=== PATIENT | male | born 1990 | race Caucasian/White ===

== ENCOUNTER 2017-10-18 01:56 | Emergency (ER) | payer OTHER ==
[~2017-10-18] VITALS: Ht 167.6 cm; Wt 66.7 kg
--- NOTE | 2017-10-18 02:01 | ER Report ---
History and Physical Time Seen By MD: 01:58 HPI/ROS CHIEF COMPLAINT: chest pain HISTORY OF PRESENT ILLNESS: This is a 26 year old male. He had sudden onset of chest pain tonight. Right side in lower right area and into ribs. Sharp pain. Worse with deep breaths. Never had pain like this in the past. Has not been sick otherwise, denies runny nose, sore throat or cough. No history of lung or heart problems. No history of blood clots. Denies drug use or alcohol. He does not smoke. No fevers or chills. Has some nausea and one episode of vomiting tonight. Normal bowel and bladder function. No rashes. REVIEW OF SYSTEMS: As above. Allergies: Coded Allergies: No Known Drug Allergies (Unverified , 10/18/17) Home Meds Active Scripts Ondansetron (ZOFRAN ODT) 4 Mg Tab.rapdis, 4 MG PO Q6H Y for NAUSEA/VOMITING, # 20 TAB.JOYA 0 Refills Prov:PRESLEY DUGGAN MD 10/18/17 Hydrocodone Bit/Acetaminophen (HYDROCODON-ACETAMINOPHEN 5-325) 1 Each Tablet, 1 EACH PO Q4H Y for PAIN, #12 TAB 0 Refills Prov:PRESLEY DUGGAN MD 10/18/17 Reviewed Nurses Notes: Yes Hx Smoking: No Exposure to Second Hand Smoke?: No Hx Substance Use Disorder: Yes Hx Alcohol Use: No Constitutional Vital Sign - Last 24 Hours 10/18/17 10/18/17 10/18/17 10/18/17 01:56 01:57 02:00 02:01 Temp 98.9 Pulse 81 82 83 Resp 13 20 12 B/P (MAP) 123/91 114/79 (91) Pulse Ox 99 99 99 O2 Delivery Room Air 10/18/17 10/18/17 10/18/17 10/18/17 02:05 02:06 02:11 02:16 Pulse 77 79 72 Resp 23 16 19 Pulse Ox 98 99 100 O2 Flow Rate 2.0 10/18/17 10/18/17 10/18/17 10/18/17 02:30 02:31 02:46 03:00 Pulse 84 89 Resp 13 B/P (MAP) 119/87 (98) 107/68 (81) Pulse Ox 100 100 10/18/17 10/18/17 10/18/1710/18/18 03:01 03:46 03:51 04:00 Pulse 79 83 86 82 Resp 15 15 16 B/P (MAP) 132/75 (94) Pulse Ox 99 99 95 O2 Delivery Room Air Physical Exam General Appearance: The patient is alert. He is having acute distress because of the pain. Non-toxic in appearance. Eyes: Pupils are equal, round. No pallor, injection or icterus. ENT: Mucous membranes are moist. Normal oral mucosa. Posterior oropharynx is normal. Neck: Supple and non tender. No lymphadenopathy. Respiratory: Difficult to breath because of pain, taking shallow breaths. Lungs are clear to auscultation. There are no retractions or accessory muscle use. Cardiovascular: Regular rate and rhythm. No murmurs, gallops or rubs. Normal capillary refill. No edema. Gastrointestinal: Abdomen is soft and non tender. Nondistended. Normal active bowel sounds. No costovertebral angle tenderness with percussion. Neurological: Alert and oriented x3. Skin: Warm and dry. No rashes. Musculoskeletal: Extremities are nontender. Full range of motion. No tenderness in palpation of the cervical, thoracic and lumbar spine. DIFFERENTIAL DIAGNOSIS: After history and physical exam, differential diagnosis was considered for chest pain including but not limited to myocardial ischemia, pericarditis pulmonary embolus, chest wall pain, pleural inflammation and pulmonary infectious causes. Medical Decision Making Data Points Result Diagram: 10/18/17 0142 10/18/17 0142 Laboratory Hematology Test 10/18/17 01:42 Red Blood Count 6.24 M/uL (4.00-5.60) Mean Corpuscular Volume 89.4 fL (80.0-96.0) Mean Corpuscular Hemoglobin 29.7 pg (26.0-33.0) Mean Corpuscular Hemoglobin Concent 33.2 g/dL (32.0-36.0) Red Cell Distribution Width 13.3 % (11.5-14.5) Mean Platelet Volume 7.9 fL (7.2-11.1) Neutrophils (%) (Auto) 88.5 % (39.4-72.5) Lymphocytes (%) (Auto) 4.3 % (17.6-49.6) Monocytes (%) (Auto) 6.6 % (4.1-12.4) Eosinophils (%) (Auto) 0.4 % (0.4-6.7) Basophils (%) (Auto) 0.2 % (0.3-1.4) Nucleated RBC Relative Count (auto) 0.0 /100WBC Neutrophils # (Auto) 21.8 K/uL (2.0-7.4) Lymphocytes # (Auto) 1.1 K/uL (1.3-3.6) Monocytes # (Auto) 1.6 K/uL (0.3-1.0) Eosinophils # (Auto) 0.1 K/uL (0.0-0.5) Basophils # (Auto) 0.1 K/uL (0.0-0.1) Nucleated RBC Absolute Count (auto) 0.00 K/uL Peripheral Blood Smear Yes Y/N Prothrombin Time 13.6 seconds (12.0-14.4) Prothromb Time International Ratio 1.03 Activated Partial Thromboplast Time 23 seconds (23-35) D-Dimer Quantitative (PE/DVT) < 0.27 ug/ml (0-0.50) Sodium Level 140 mmol/L (137-145) Potassium Level 4.2 mmol/L (3.5-5.0) Chloride Level 100 mmol/L (98-107) Carbon Dioxide Level 23 mmol/L (22-30) Blood Urea Nitrogen 18 mg/dl (9-21) Creatinine 1.00 mg/dl (0.66-1.25) Glomerular Filtration Rate Calc > 60.0 Random Glucose 100 mg/dl (75-110) Calcium Level 9.7 mg/dl (8.4-10.2) Total Bilirubin 0.7 mg/dl (0.2-1.3) Aspartate Amino Transf (AST/SGOT) 33 U/L (0-35) Alanine Aminotransferase (ALT/SGPT) 41 U/L (0-56) Alkaline Phosphatase 71 U/L (0-126) Troponin I < 0.012 ng/ml Total Protein 9.2 gm/dl (6.3-8.2) Albumin 5.0 g/dl (3.5-5.0) Chemistry Test 10/18/17 01:42 White Blood Count 24.6 k/uL (4.5-11.0) Red Blood Count 6.24 M/uL (4.00-5.60) Hemoglobin 18.5 g/dL (14.0-18.0) Hematocrit 55.8 % (42.0-52.0) Mean Corpuscular Volume 89.4 fL (80.0-96.0) Mean Corpuscular Hemoglobin 29.7 pg (26.0-33.0) Mean Corpuscular Hemoglobin Concent 33.2 g/dL (32.0-36.0) Red Cell Distribution Width 13.3 % (11.5-14.5) Platelet Count 309 K/uL (150-450) Mean Platelet Volume 7.9 fL (7.2-11.1) Neutrophils (%) (Auto) 88.5 % (39.4-72.5) Lymphocytes (%) (Auto) 4.3 % (17.6-49.6) Monocytes (%) (Auto) 6.6 % (4.1-12.4) Eosinophils (%) (Auto) 0.4 % (0.4-6.7) Basophils (%) (Auto) 0.2 % (0.3-1.4) Nucleated RBC Relative Count (auto) 0.0 /100WBC Neutrophils # (Auto) 21.8 K/uL (2.0-7.4) Lymphocytes # (Auto) 1.1 K/uL (1.3-3.6) Monocytes # (Auto) 1.6 K/uL (0.3-1.0) Eosinophils # (Auto) 0.1 K/uL (0.0-0.5) Basophils # (Auto) 0.1 K/uL (0.0-0.1) Nucleated RBC Absolute Count (auto) 0.00 K/uL Peripheral Blood Smear Yes Y/N Prothrombin Time 13.6 seconds (12.0-14.4) Prothromb Time International Ratio 1.03 Activated Partial Thromboplast Time 23 seconds (23-35) D-Dimer Quantitative (PE/DVT) < 0.27 ug/ml (0-0.50) Glomerular Filtration Rate Calc > 60.0 Calcium Level 9.7 mg/dl (8.4-10.2) Total Bilirubin 0.7 mg/dl (0.2-1.3) Aspartate Amino Transf (AST/SGOT) 33 U/L (0-35) Alanine Aminotransferase (ALT/SGPT) 41 U/L (0-56) Alkaline Phosphatase 71 U/L (0-126) Troponin I < 0.012 ng/ml Total Protein 9.2 gm/dl (6.3-8.2) Albumin 5.0 g/dl (3.5-5.0) Coagulation Test 10/18/17 01:42 Prothrombin Time 13.6 seconds Prothromb Time International Ratio 1.03 Activated Partial Thromboplast Time 23 seconds D-Dimer Quantitative (PE/DVT) < 0.27 ug/ml EKG/Imaging EKG Interpretation 12 lead EKG: Rhythm: Normal sinus rhythm, rate 80 [place]: Left axis deviation QRS: Incomplete right bundle branch block ST segments: No ST elevation or depression. Normal T waves. Imaging PORTABLE CHEST: Indication: Chest pain. Technique: A single frontal film was obtained. Comparison: 04/08/2017 Skeletal and soft tissue structures: Intact and unchanged. Heart and mediastinum: Within normal limits. Lung mitchell: Well-expanded and clear. No focal or diffuse opacities. Pleural spaces: Unremarkable. Impression: No acute process or significant change. Report Dictated By: Alek Najera MD at 10/18/2017 2:43 AM CHEST W CONTRAST COMPARISONS: Single view chest dated earlier same day. ADDITIONAL PERTINENT HISTORY: Chest pain and leukocytosis TECHNIQUE: Multiple axial images are obtained from the lung apices through the upper abdomen after the IV administration of contrast material. One of the following dose optimization techniques was utilized in the performance of this exam: Automated exposure control; adjustment of the mA and/or kV according to the patient's size; or use of an iterative reconstruction technique. Specific details can be referenced in the facility's radiology CT exam operational policy. CONTRAST: 85mL of Isovue-370 FINDINGS: Lung parenchyma: Negative. Pleural spaces: Negative Heart, mediastinum and pam: Negative. Cardiopulmonary vasculature: Negative. Central airways: Negative Thyroid, supra- clavicular, axillary regions: thyroid Surrounding soft tissues: Negative. Upper abdominal structures: Negative. Osseous structures: Negative. IMPRESSION: Normal CT of the chest with contrast. Report Dictated By: Bryon Rodriguez MD at 10/18/2017 3:41 AM ED Course/Re-evaluation Clinical Indication for ER IV: Hydration, IV Access ED Course Improved pain after Morphine 4mg IV and Phenergan 12.5mg IV. Labs show leukocytosis, but rest of labs are normal. EKG as noted. Troponin negative. Ddimer negative. CT scan obtained, also negative. Appears to be pleuritic pain. Discussed this with the patient and see instructions below. Decision to Disposition Date: Oct 18, 2017 Decision to Disposition Time: 03:52 Depart Departure Latest Vital Signs Vital Signs Date Time Temp Pulse Resp B/P (MAP) Pulse Ox O2 Delivery O2 Flow Rate FiO2 10/18/17 04:00 82 16 132/75 (94) 95 Room Air 10/18/17 02:05 2.0 10/18/17 01:57 98.9 Impression: Primary Impression: Pleurisy Condition: Improved Disposition: HOME OR SELF-CARE New Scripts Ondansetron (ZOFRAN ODT) 4 Mg Tab.rapdis 4 MG PO Q6H Y for NAUSEA/VOMITING, #20 TAB.JOYA 0 Refills Prov: PRESLEY DUGGAN MD 10/18/17 Hydrocodone Bit/Acetaminophen (HYDROCODON-ACETAMINOPHEN 5-325) 1 Each Tablet 1 EACH PO Q4H Y for PAIN, #12 TAB 0 Refills Prov: PRESLEY DUGGAN MD 10/18/17 Patient Instructions: Pleurisy (ED) Additional Instructions: Ibuprofen 200mg over the counter tablets, take 4 tablets three times a day with food. Lortab 5/325, one every 4 hours as needed for pain. Zofran 4mg, one every 6 hours as needed for nausea or vomiting. Follow-up with your primary care provider for re-evaluation if not improving after a few days. PRESLEY DUGGAN MD Oct 18, 2017 02:01
--- NOTE | 2017-10-18 02:08 | EKG ---
FACILITY: [facility] - [place] PATIENT NAME: AGUSTIN GOODWIN : [id number] MR: [id number] V: [id number] EXAM DATE: ORDERING PHYSICIAN: PRESLEY DUGGAN TECHNOLOGIST: Chele Hernandez Reason : Blood Pressure : / mmHG Vent. Rate : 080 BPM Atrial Rate : 080 BPM P-R Int : 150 ms QRS Dur : 104 ms QT Int : 392 ms P-R-T Axes : 077 -43 062 degrees QTc Int : 452 ms Normal sinus rhythm with sinus arrhythmia Left axis deviation Pulmonary disease pattern Incomplete right bundle branch block Abnormal ECG No previous ECGs available Confirmed by JOSE R SIMS ([id number]) on 10/18/2017 6:28:55 AM Referred By: Confirmed By:JOSE R SIMS
[2017-10-18] MEDS ORDERED: NS(*) 0.9% 1000 ML BAG 1,000 ML IV ONE (02:11)
[2017-10-18] MEDS ORDERED: PROMETHAZINE 25 MG/ML 1 ML AMP IVP ONE (02:15)
[2017-10-18] MEDS ORDERED: ASPIRIN 81 MG CHEW PO ONE (02:15)
[2017-10-18] MEDS ORDERED: MORPHINE 4 MG/ML SDV IVP ONE (02:15)
[2017-10-18 02:22] LABS: PLATELET COUNT, AUTOMATED 309 K/uL (150-450)
[2017-10-18 02:28] LABS: INR 1.03
--- NOTE | 2017-10-18 02:52 | RADIOLOGY IMAGING REPORT ---
FACILITY: [facility] - [place] PATIENT NAME: Edward Damico : 1990 MR: [id number] V: [id number] EXAM DATE: ORDERING PHYSICIAN: PRESLEY DUGGAN TECHNOLOGIST: Location: [facility] Patient: Edward Damico : 1990 Visit/Account:[id number] Date of Sevice: 10/18/2017 PORTABLE CHEST: Indication: Chest pain. Technique: A single frontal film was obtained. Comparison: 04/08/2017 Skeletal and soft tissue structures: Intact and unchanged. Heart and mediastinum: Within normal limits. Lung mitchell: Well-expanded and clear. No focal or diffuse opacities. Pleural spaces: Unremarkable. Impression: No acute process or significant change. Report Dictated By: Alek Najera MD at 10/18/2017 2:43 AM Report E-Signed By: Alek Najera MD at 10/18/2017 2:47 AM WSN:[id number]
[2017-10-18] MEDS ORDERED: IOPAMIDOL 76% 75 ML INFUS BTL 75 ML ONE (03:07)
[2017-10-18] MEDS ORDERED: NS 0.9% 20 ML SDV 100 ML ONE (03:08)
--- NOTE | 2017-10-18 03:49 | RADIOLOGY IMAGING REPORT ---
FACILITY: [facility] - [place] PATIENT NAME: Edward Damico : 1990 MR: [id number] V: [id number] EXAM DATE: ORDERING PHYSICIAN: PRESLEY DUGGAN TECHNOLOGIST: Location: [facility] Patient: Edward Damico : 1990 Visit/Account:[id number] Date of Sevice: 10/18/2017 CHEST W CONTRAST COMPARISONS: Single view chest dated earlier same day. ADDITIONAL PERTINENT HISTORY: Chest pain and leukocytosis TECHNIQUE: Multiple axial images are obtained from the lung apices through the upper abdomen after th e IV administration of contrast material. One of the following dose optimization techniques was util ized in the performance of this exam: Automated exposure control; adjustment of the mA and/or kV acco rding to the patient's size; or use of an iterative reconstruction technique. Specific details can be referenced in the facility's radiology CT exam operational policy. CONTRAST: 85mL of Isovue-370 FINDINGS: Lung parenchyma: Negative. Pleural spaces: Negative Heart, mediastinum and pam: Negative. Cardiopulmonary vasculature: Negative. Central airways: Negative Thyroid, supra- clavicular, axillary regions: thyroid Surrounding soft tissues: Negative. Upper abdominal structures: Negative. Osseous structures: Negative. IMPRESSION: Normal CT of the chest with contrast. Report Dictated By: Bryon Rodriguez MD at 10/18/2017 3:41 AM Report E-Signed By: Bryon Rodriguez MD at 10/18/2017 3:44 AM WSN:[id number]
[2017-10-18] MEDS ORDERED: LOR5/325 PO (03:53)
[2017-10-18] MEDS ORDERED: ONDA4TAB PO (03:53)
[2017-10-18] MEDS ORDERED: IBUPROFEN 800 MG TAB PO ONE (03:55)
[2017-10-18] MEDS ORDERED: ONDANSETRON 4 MG ODT TH SL ONE (03:55)
[2017-10-18] MEDS ORDERED: ACET/HYDROC 5/325MG TH ER ONLY 2 TAB/BOTTLE PO ONE (03:55)
[2017-10-18 04:00] VITALS: BP 132/75
== END 2017-10-18 04:10 | disposition home or self-care (01) ==
LOC: ER 02:06
DX: R09.1 Pleurisy (principal)
CPT/HCPCS: 71045; 71260; 84484; 85025; 85379; 85610; 85730; 93005; 96361; 96374; 96375; 99284; J2270; J2550; J7030; J7050; Q9967; S0119; 82040; 82247; 82310; 82374; 82435; 82565; 82947; 84075; 84132; 84155; 84295; 84450; 84460; 84520

== ENCOUNTER → 2017-10-18 | Outpatient (CLI) | payer SELFPAY ==
[~2017-10-18] MED LIST: LOR5/325 PO; ONDA4TAB PO
== END ==
LOC: AMB 01:26
PROVIDERS: ATTEND Nurse Practitioner
DX: R07.1 Chest pain on breathing (principal)
CPT/HCPCS: A0425; A0427